=== PATIENT | female | born 1995 | race Caucasian/White ===

== ENCOUNTER 2022-04-21 18:16 | Emergency (ER) | payer BC ==
[2022-04-21 19:58] LABS: #Basophils 0.1 10x3/uL (0.0-0.2); #Eosinphils 0.2 10x3/uL (0.0-0.5); #Monocytes 0.5 10x3/uL (0.0-1.1); #Neutrophils 4.4 10x3/uL (1.5-8.4); %Basophils 0.7 % (0.0-2.0); %Eosinophils 2.6 % (0.0-6.0); %Lymphocytes 25.5 % (18.0-47.0); %Monocytes 7.5 % (0.0-10.0); %Neutrophils 63.6 % (40.0-75.0); Hemoglobin 12.4 g/dL (12.0-15.5); Mean Corpuscular HGB CONC 35.8 g/dL (32.0-36.0); Mean Corpuscular Hemoglobin 31.8 pg (27.0-33.0); Mean Corpuscular Volume 88.7 fl (81.6-98.3); Platelet Count 259 10x3/uL (150-450); RBC Distribution Width 11.3 % (11.5-14.5)
== END 2022-04-21 20:54 | disposition home or self-care (01) ==
LOC: CSHERS 18:16
DX: N92.0 Excessive and frequent menstruation with regular cycle (principal)
CPT/HCPCS: 84702; 85025; 86850; 86900; 86901; 99284